=== PATIENT | female | born 1970 | race Caucasian/White ===

== ENCOUNTER 2016-08-31 12:18 | Inpatient (IN) | payer OTHER ==
[~2016-08-31] VITALS: Ht 175.3 cm; Wt 156.0 kg
[~2016-08-31 12:18] MED LIST: ENDOCET 5-3251 EACH PO; IBUPROFEN800 MG PO; NORCO 5/3251 TABLET PO; PARAFON FORTE500 MG PO
[2016-08-31 12:55] LABS: HEMATOCRIT 42.8 % (36.0-46.0); MCHC 30.1 G/DL (30.0-36.0); MCV 79.7 FL (83-99); MEAN PLAT.VOLUME 10.6 uM^3 (9.5-12.4); PLATELET COUNT 291 K/uL (156-360); RBC DIS.WIDTH-CV 14.6 % (11.8-14.6); RBC DIS.WIDTH-SD 42.1 % (39-53); RED BLOOD COUNT 5.37 M/uL (3.80-5.20); WHITE BLOOD COUNT 8.3 K/uL (4.1-10.2)
[2016-08-31 13:06] LABS: CHLORIDE 105 mEq/L (99-109); POTASSIUM 4.1 mEq/L (3.7-5.4); SODIUM 140 mEq/L (136-147)
[2016-08-31 13:08] LABS: GLUCOSE 104 mg/dL (70-99)
[2016-08-31 13:10] LABS: ANION GAP 11 MEQ/L (2-14); TOTAL BILIRUBIN 0.7 mg/dL (0.0-1.0)
[2016-08-31 13:12] LABS: ALKALINE PHOSPHATASE 66 IU/L (3-129); GFR ESTIMATE (CALCULATED) > 59 mL/min/
[2016-08-31 13:13] LABS: UREA NITROGEN (BUN) 9 mg/dL (9-23)
[2016-08-31 13:22] LABS: QUANTITATIVE HCG < 4.0 MIU/ML
[2016-08-31 14:45] LABS: ADD MIUA? YES; BILIRUBIN NEGATIVE; BLOOD LARGE; COLOR YELLOW ((YELLOW)); GLUCOSE (STRIP) NEGATIVE; KETONES 5; LEUKOCYTES NEGATIVE; NITRITE NEGATIVE; PROTEIN (STRIP) NEGATIVE; SPECIFIC GRAVITY 1.018 (1.000-1.030); UROBILINOGEN 0.2 MG/DL (0.2-1.0)
[2016-08-31 14:47] LABS: LIPASE 36 U/L (1.0-51.0)
[2016-08-31 15:04] LABS: BACTERIA RARE /HPF; EPITHELIAL CELLS 1+ /HPF; HYALINE CASTS 0-5 /LPF; MUCUS 2+ /LPF; RED BLOOD CELLS 30-40 /HPF (0-5); UCUL ADDED? NO; WHITE BLOOD CELLS 0-5 /HPF (0-5)
[2016-08-31] MEDS ORDERED: MULTI-DELYN473 M1 PO (18:45)
[2016-08-31] MEDS ORDERED: B-125000 MCG/1 SL (18:46)
[2016-08-31] MEDS ORDERED: CACARB500L PO (18:47)
[2016-08-31 19:15] LABS: PROTHROMBIN TIME 12.4 (9.2-11.2); PTT 27.8 (25-32)
[2016-08-31 19:18] LABS: INTER. NORMALIZED RATIO 1.2
[2016-08-31 23:35] VITALS: BP 124/67
[2016-09-01 02:45] LABS: INTER. NORMALIZED RATIO 1.2; PROTHROMBIN TIME 11.8 (9.2-11.2); PTT 34.8 (25-32)
[2016-09-01 05:22] VITALS: BP 118/69
[2016-09-01 08:13] LABS: POINT-OF-CARE METER ID UU13113831
[2016-09-01 09:01] LABS: EOSINOPHIL (%) 1.1 % (0-5); EOSINOPHIL COUNT 0.1 K/uL (0-0.3); HEMATOCRIT 36.7 % (36.0-46.0); IMMATURE GRANULOCYTE (%) 0.3 % (0.0-0.7); INSTRUMENT ABS NEUTROPHIL CT 3.8 K/uL; MCH 24.6 PG (29.0-34.0); MCHC 30.2 G/DL (30.0-36.0); MCV 81.2 FL (83-99); MEAN PLAT.VOLUME 10.8 uM^3 (9.5-12.4); MONOCYTE (%) 8.6 % (3-12); MONOCYTE COUNT 0.6 K/uL (0-0.8); NEUTROPHIL (%) 58.9 % (45-76); NEUTROPHIL COUNT 3.8 K/uL (1.8-6.4); PLATELET COUNT 222 K/uL (156-360); RBC DIS.WIDTH-CV 14.6 % (11.8-14.6); RBC DIS.WIDTH-SD 43.6 % (39-53); RED BLOOD COUNT 4.52 M/uL (3.80-5.20); WHITE BLOOD COUNT 6.4 K/uL (4.1-10.2)
[2016-09-01 09:15] VITALS: BP 125/69
[2016-09-01 09:25] LABS: INTER. NORMALIZED RATIO 1.1; PROTHROMBIN TIME 11.7 (9.2-11.2)
[2016-09-01 09:28] LABS: ALKALINE PHOSPHATASE 53 IU/L (3-129); ANION GAP 7 MEQ/L (2-14); CHLORIDE 107 MEQ/L (99-109); GFR ESTIMATE (CALCULATED) > 59 mL/min/; GLUCOSE 96 mg/dL (70-99); SAMPLE HEMOLYSIS CHECK 0; SAMPLE ICTERIC CHECK 0; SAMPLE LIPEMIA CHECK 0; SODIUM 142 MEQ/L (136-147); TOTAL BILIRUBIN 0.5 MG/DL (0.0-1.0); UREA NITROGEN (BUN) 9 mg/dL (9-23)
[2016-09-01 11:16] LABS: PTT 44.3 (25-32)
[2016-09-01 15:59] LABS: POINT-OF-CARE METER ID UU13113831
[2016-09-01 20:31] VITALS: BP 131/61
[2016-09-01 23:08] VITALS: BP 136/70
[2016-09-02 04:00] VITALS: BP 131/71
[2016-09-02 05:42] LABS: POINT-OF-CARE METER ID UU14174225
[2016-09-02 06:54] LABS: HEMATOCRIT 35.3 % (36.0-46.0); MCH 24.4 PG (29.0-34.0); MCHC 29.5 G/DL (30.0-36.0); MCV 82.7 FL (83-99); MEAN PLAT.VOLUME 11.1 uM^3 (9.5-12.4); PLATELET COUNT 217 K/uL (156-360); RBC DIS.WIDTH-CV 14.8 % (11.8-14.6); RBC DIS.WIDTH-SD 44.7 % (39-53); RED BLOOD COUNT 4.27 M/uL (3.80-5.20); WHITE BLOOD COUNT 5.5 K/uL (4.1-10.2)
[2016-09-02 08:02] VITALS: BP 108/60
[2016-09-02 11:25] VITALS: BP 116/56
[2016-09-02 12:08] LABS: POINT-OF-CARE METER ID UU14174225
[2016-09-02 15:35] VITALS: BP 125/61
[2016-09-02 19:48] VITALS: BP 123/74
[2016-09-03 00:05] VITALS: BP 112/60
[2016-09-03 09:32] VITALS: BP 132/74
[2016-09-03 10:17] LABS: HEMATOCRIT 37.9 % (36.0-46.0); MCH 24.2 PG (29.0-34.0); MCHC 29.6 G/DL (30.0-36.0); MEAN PLAT.VOLUME 10.9 uM^3 (9.5-12.4); PLATELET COUNT 248 K/uL (156-360); RBC DIS.WIDTH-CV 14.6 % (11.8-14.6); RBC DIS.WIDTH-SD 43.2 % (39-53); RED BLOOD COUNT 4.62 M/uL (3.80-5.20); WHITE BLOOD COUNT 5.4 K/uL (4.1-10.2)
[2016-09-03 10:47] LABS: ANION GAP 9 MEQ/L (2-14); CHLORIDE 105 MEQ/L (99-109); GFR ESTIMATE (CALCULATED) > 59 mL/min/; GLUCOSE 107 mg/dL (70-99); SAMPLE HEMOLYSIS CHECK 0; SAMPLE ICTERIC CHECK 0; SAMPLE LIPEMIA CHECK 0; SODIUM 141 MEQ/L (136-147); UREA NITROGEN (BUN) 6 mg/dL (9-23)
[2016-09-03 12:36] VITALS: BP 132/69
[2016-09-03 15:58] VITALS: BP 135/79
[2016-09-03 20:04] VITALS: BP 123/71
[2016-09-03 23:44] VITALS: BP 134/68
[2016-09-04 03:49] VITALS: BP 121/70
[2016-09-04 07:05] LABS: HEMATOCRIT 34.7 % (36.0-46.0); MCH 24.5 PG (29.0-34.0); MCV 81.6 FL (83-99); MEAN PLAT.VOLUME 10.5 uM^3 (9.5-12.4); PLATELET COUNT 227 K/uL (156-360); RBC DIS.WIDTH-CV 14.4 % (11.8-14.6); RED BLOOD COUNT 4.25 M/uL (3.80-5.20); WHITE BLOOD COUNT 4.9 K/uL (4.1-10.2)
[2016-09-04 07:38] VITALS: BP 125/67
[2016-09-04 10:52] VITALS: BP 129/64
[2016-09-04 16:29] VITALS: BP 125/65
[2016-09-04 19:50] VITALS: BP 117/59
[2016-09-05] VITALS: BP 130/80
[2016-09-05 00:19] LABS: POINT-OF-CARE METER ID UU14188625
[2016-09-05 03:54] VITALS: BP 131/63
[2016-09-05 07:38] VITALS: BP 120/75
[2016-09-05] MEDS ORDERED: COUMADIN1 MG PO (11:22)
[2016-09-05] MEDS ORDERED: LOVENOX80 MG/0.8 SC (11:22)
[2016-09-05 11:25] VITALS: BP 128/70
[2016-09-05 12:31] LABS: INTER. NORMALIZED RATIO 1.4; PROTHROMBIN TIME 14.6 (9.2-11.2)
[2016-09-07] MEDS ORDERED: COUMADIN1 MG PO (11:23)
== END 2016-09-05 12:22 | disposition home or self-care (01) | DRG 442 ==
LOC: EME 12:18 → EDOF 22:13 → 5WEST 22:13 → 5SOUTH 09-01 10:09
PROVIDERS: Hospitalist; Internal Medicine; Nurse Practitioner Adult Health; Physician Assistant; Surgery
DX: I81 Portal vein thrombosis (principal); M46.26 Osteomyelitis of vertebra, lumbar region; Z68.43 Body mass index [BMI] 50.0-59.9, adult; R16.0 Hepatomegaly, not elsewhere classified; E66.01 Morbid (severe) obesity due to excess calories; T81.4XXA Infection following a procedure, initial encounter; E11.69 Type 2 diabetes mellitus with other specified complication; K76.0 Fatty (change of) liver, not elsewhere classified; Z98.1 Arthrodesis status; I10 Essential (primary) hypertension; Z98.84 Bariatric surgery status; Z86.718 Personal history of other venous thrombosis and embolism
CPT/HCPCS: 74176; 74177; 76705; 80048; 80053; 81003; 82948; 83605; 83690; 84702; 85025; 85027; 85610; 85730; 99281; 99285; G0378; J1170; J1650; J1885; J2405; J3010; J7030; S0028

== ENCOUNTER 2017-08-17 03:12 | Emergency (ER) | payer OTHER ==
[~2017-08-17] VITALS: Ht 172.7 cm; Wt 154.4 kg
[~2017-08-17 03:12] MED LIST changes: +B-125000 MCG/1 SL; +CALCIUM + D3 E1 EACH PO; +COUMADIN1 MG PO; +LOVENOX80 MG/0.8 SC; +MULTI-DELYN473 M1 PO
[2017-08-17 03:26] LABS: HEMATOCRIT 36.6 % (36.0-46.0); HEMOGLOBIN 11.4 G/DL (11.9-15.5); MCH 24.2 PG (29.0-34.0); MCHC 31.1 G/DL (30.0-36.0); MCV 77.7 FL (83-99); PLATELET COUNT 276 K/uL (156-360); RBC DIS.WIDTH-CV 14.1 % (11.8-14.6); RBC DIS.WIDTH-SD 39.3 % (39-53); RED BLOOD COUNT 4.71 M/uL (3.80-5.20); WHITE BLOOD COUNT 7.9 K/uL (4.1-10.2)
[2017-08-17 03:38] LABS: ALBUMIN 4.1 g/dL (3.2-4.8); CHLORIDE 103 mEq/L (99-109); POTASSIUM 3.9 mEq/L (3.7-5.4); SODIUM 140 mEq/L (136-147)
[2017-08-17 03:40] LABS: GLUCOSE 137 mg/dL (70-99)
[2017-08-17 03:41] LABS: TOTAL PROTEIN 7.2 g/dL (6.4-8.3)
[2017-08-17 03:42] LABS: TOTAL BILIRUBIN 0.3 mg/dL (0.0-1.0)
[2017-08-17 03:44] LABS: ALKALINE PHOSPHATASE 80 IU/L (3-129); CREATININE 0.9 mg/dL (0.6-1.3); GFR ESTIMATE (CALCULATED) > 59 mL/min/
[2017-08-17 03:45] LABS: UREA NITROGEN (BUN) 17 mg/dL (9-23)
[2017-08-17 03:46] LABS: AST (GOT) 13 IU/L (2-34)
[2017-08-17 03:47] LABS: ALT (GPT) 21 IU/L (3-49)
[2017-08-17 03:54] LABS: QUANTITATIVE HCG < 4.0 MIU/ML
[2017-08-17 06:13] LABS: APPEARANCE CLEAR ((CLEAR)); BILIRUBIN NEGATIVE; BLOOD NEGATIVE; COLOR YELLOW ((YELLOW)); GLUCOSE (STRIP) NEGATIVE; KETONES NEGATIVE; LEUKOCYTES NEGATIVE; NITRITE NEGATIVE; PROTEIN (STRIP) NEGATIVE; SPECIFIC GRAVITY 1.018 (1.000-1.030); UCUL ADDED? NO; UROBILINOGEN 0.2 MG/DL (0.2-1.0)
[2017-08-17] MEDS ORDERED: ULTRAM50 MG PO (07:33)
[2017-08-17 08:40] VITALS: BP 116/79
[2017-08-18] MEDS ORDERED: FLEXERIL10 MG PO (12:34)
[2017-08-18] MEDS ORDERED: PROZAC40 MG PO (12:34)
[2017-08-18] MEDS ORDERED: CYTOTEC200 MCG PO (12:35)
[2017-08-18] MEDS ORDERED: XARELTO20 MG PO (13:40)
== END 2017-08-17 08:41 | disposition home or self-care (01) ==
LOC: EME 03:12
DX: R10.31 Right lower quadrant pain (principal); Z86.718 Personal history of other venous thrombosis and embolism; Z95.828 Presence of other vascular implants and grafts; Z98.84 Bariatric surgery status; I10 Essential (primary) hypertension; Z88.0 Allergy status to penicillin; Z88.5 Allergy status to narcotic agent
CPT/HCPCS: 74177; 80053; 81003; 84702; 85027; 99281; 99285; J1885; J2405; J7030

== ENCOUNTER 2017-08-19 06:38 | Day surgery (SDC) | payer OTHER ==
[~2017-08-19] VITALS: Ht 175.3 cm; Wt 149.7 kg
[~2017-08-19 06:38] MED LIST changes: +CYTOTEC200 MCG PO; +FLEXERIL10 MG PO; +PROZAC40 MG PO; +ULTRAM50 MG PO; +XARELTO20 MG PO
[2017-08-19 07:21] VITALS: BP 128/71
[2017-08-19 10:17] VITALS: BP 135/61
[2017-08-19 10:55] VITALS: BP 131/60
== END 2017-08-19 11:07 | disposition home or self-care (01) ==
LOC: SDC
PROVIDERS: Obstetrics & Gynecology Gynecology
DX: N92.1 Excessive and frequent menstruation with irregular cycle (principal); E66.01 Morbid (severe) obesity due to excess calories; Z68.42 Body mass index [BMI] 45.0-49.9, adult; I74.9 Embolism and thrombosis of unspecified artery; Z95.828 Presence of other vascular implants and grafts; I10 Essential (primary) hypertension; K21.9 Gastro-esophageal reflux disease without esophagitis; E78.1 Pure hyperglyceridemia; E11.9 Type 2 diabetes mellitus without complications; I87.2 Venous insufficiency (chronic) (peripheral); Z88.0 Allergy status to penicillin
CPT/HCPCS: 82948; 88305; 93005; J0131; J0330; J0690; J1885; J2250; J2405; J3010